=== PATIENT | female | born 1975 | race Caucasian/White ===

== ENCOUNTER 2017-09-10 20:59 | Emergency (ER) | payer BC ==
--- NOTE | 2017-09-10 21:24 | UC ---
Lower Extremity/Ankle HPI - HPI Summary HPI Summary: fell several days ago hitting left leg on bath tub---seen at urgent care in [place] rx with bruise--then rode in a car home---now has worsening swelling and calf pain - History of Current Complaint Chief Complaint: UCLowerExtremity Stated Complaint: LEG PAIN INJURY Time Seen by Provider: 09/10/17 21:14 Hx Obtained From: Patient ?: No Onset/Duration: Sudden Onset, Lasting Days, Worse Since - past 24 hours Severity Initially: Mild Severity Currently: Moderate Aggravating Factor(s): Standing, Ambulation Alleviating Factor(s): Nothing Able to Bear Weight: Yes - with pain - Allergies/Home Medications Allergies/Adverse Reactions: Allergies Allergy/AdvReac Type Severity Reaction Status Date / Time No Known Allergies Allergy Verified 09/10/17 21:32 Home Medications: Home Medications HYDROcodone/ACETAMIN 5-325 MG* [Rives 5-325 TAB*] 1 tab PO Q6HR PRN 09/10/17 [ History Confirmed 09/10/17] Ibuprofen TAB* [Motrin TAB* 800 MG] 800 mg PO Q8HR 09/10/17 [History Confirmed 09/10/17] PMH/Surg Hx/FS Hx/Imm Hx Previously Healthy: Yes - Surgical History Surgical History: Yes Surgery Procedure, Year, and Place: TUBAL LIGATION - Family History Known Family History: Positive: None - Social History Occupation: Employed Full-time Lives: With Family Alcohol Use: None Substance Use Type: None Review of Systems Constitutional: Negative Skin: Negative Eyes: Negative ENT: Negative Respiratory: Negative Cardiovascular: Negative Gastrointestinal: Negative Genitourinary: Negative Motor: Negative Neurovascular: Negative Musculoskeletal: Edema - left lower leg, Myalgia - left calf pain Neurological: Negative Psychological: Negative Is Patient Immunocompromised?: No All Other Systems Reviewed And Are Negative: Yes Physical Exam Triage Information Reviewed: Yes Appearance: Well-Appearing, Well-Nourished, Pain Distress Vital Signs Reviewed: Yes Eye Exam: Normal Eyes: Positive: Conjunctiva Clear ENT Exam: Normal ENT: Positive: Normal ENT inspection, Hearing grossly normal. Negative: Trismus , Muffled voice, Hoarse voice Dental Exam: Normal Neck exam: Normal Neck: Positive: Supple, Nontender, No Lymphadenopathy Respiratory Exam: Normal Respiratory: Positive: Chest non-tender, No respiratory distress, No accessory muscle use Cardiovascular Exam: Normal Cardiovascular: Positive: RRR, Pulses Normal, Brisk Capillary Refill Musculoskeletal Exam: Other Musculoskeletal: Positive: Strength Limited @ - lef lower leg, ROM Limited @ - left ankle, Edema @ - left lower leg Neurological Exam: Normal Neurological: Positive: Alert, Muscle Tone Normal Psychological Exam: Normal Skin Exam: Normal Lower Extremity Course/Dx - Course Course Of Treatment: d/c patient from urgent care to go to [facility] for for evaluation of swollen tender calf - Differential Dx/Diagnosis Provider Diagnoses: lower lower leg pain and swelling Discharge - Sign-Out/Discharge Documenting (check all that apply): Discharge/Admit/Transfer - Discharge Plan Condition: Stable Disposition: HOME Discharge Disposition Comment: to [facility] ed by private car Patient Education Materials: Deep Vein Thrombosis (ED), Leg Edema (ED), Deep Vein Thrombosis Prevention (ED) Referrals: Yola Moreno MD [Primary Care Provider] - Additional Instructions: I am discharging you to go directly to the emergency department for evaluation of pain and swelling in left lower leg - Billing Disposition and Condition Condition: STABLE Disposition: Home
[2017-09-10 21:32] VITALS: BP 144/89
== END 2017-09-10 21:35 | disposition home or self-care (01) ==
LOC: UCEAST 20:59
DX: M79.662 Pain in left lower leg (principal); M79.89 Other specified soft tissue disorders
CPT/HCPCS: 99212; G0463

== ENCOUNTER 2017-09-10 21:52 | Emergency (ER) | payer BC ==
--- NOTE | 2017-09-11 00:01 | ED ---
Lower Extremity - HPI Summary HPI Summary: 42-year-old female presents with increasing left calf swelling today. States she hit her leg a week ago on the side of her left lower calf and has been having pain since. She was seen in [place] and had negative x-rays. She states that she drove back 5 days ago and everything seemed okay. She states she spent next 4 days with her leg elevated. She went back to work today and has not been able to keep her leg elevated. She states she has been having increasing edema for the past day. She denies any fevers. She denies any chest pain or shortness of breath. No numbness or tingling. No weakness. She is pain is worse when she tries to ambulate. She states it feels very stiff. She has been taking Tylenol ibuprofen and icing without relief. She is nonsmoker. No family history of blood clots. - History of Current Complaint Chief Complaint: EDExtremityLower Stated Complaint: POSSIBLE BLOOD CLOT IN LT LEG Time Seen by Provider: 09/10/17 22:35 Pain Intensity: 7 - Allergies/Home Medications Allergies/Adverse Reactions: Allergies Allergy/AdvReac Type Severity Reaction Status Date / Time No Known Allergies Allergy Verified 09/10/17 21:32 Home Medications: Home Medications Escitalopram (NF) [Lexapro 10 mg (NF)] 10 mg PO DAILY 09/10/17 [History Confirmed 09/10/17] PMH/Surg Hx/FS Hx/Imm Hx Endocrine/Hematology History: Denies: Hx Diabetes Cardiovascular History: Denies: Hx Hypertension, Hx Pacemaker/ICD History: Denies: Hx Renal Disease Sensory History: Denies: Hx Hearing Aid Psychiatric History: Denies: Hx Panic Disorder - Surgical History Surgery Procedure, Year, and Place: TUBAL LIGATION Infectious Disease History: No Infectious Disease History: Denies: Traveled Outside the [place] in Last 30 Days - Family History Known Family History: Negative: Blood Disorder - Social History Alcohol Use: Occasionally Substance Use Type: Reports: None Smoking Status (MU): Never Smoked Tobacco Review of Systems Negative: Fever Negative: Chest Pain Negative: Shortness Of Breath Positive: Myalgia - left calf, Edema - left calf All Other Systems Reviewed And Are Negative: Yes Physical Exam Triage Information Reviewed: Yes Vital Signs On Initial Exam: Initial Vitals Temp Pulse Resp BP Pulse Ox 98.9 F 85 20 147/86 96 09/10/17 22:00 09/10/17 22:00 09/10/17 22:00 09/10/17 22:00 09/10/17 22:00 Vital Signs Reviewed: Yes Appearance: Positive: Well-Appearing Skin: Positive: Warm, Dry, Other - Ecchymosis noted to left foot and calf Head/Face: Positive: Normal Head/Face Inspection Eyes: Positive: Normal, Conjunctiva Inflammed ENT: Positive: Pharynx normal Respiratory/Lung Sounds: Positive: Clear to Auscultation, Breath Sounds Present Cardiovascular: Positive: Normal, RRR Musculoskeletal: Positive: Limited @ - Left calf, Edema Left - Left calf and foot, Other - Contusion noted to the area were pain is greatest in left calf ( this is also the area she struck in the accident), good pulses, cap relief less than 2 seconds Neurological: Positive: Normal Psychiatric: Positive: Normal Diagnostics - Vital Signs Vital Signs Temp Pulse Resp BP Pulse Ox 09/10/17 22:00 98.9 F 85 20 147/86 96 - Laboratory Lab Statement: Any lab studies that have been ordered have been reviewed, and results considered in the medical decision making process. - Ultrasound No standard instances Ultrasound Interpretation: Positive (See Comments) - No DVT. Edema noted in superficial Soft tissue Ultrasound Interpretation Completed By: Radiologist Lower Extremity Course/Dx - Course Course Of Treatment: 42-year-old female presents with increasing left calf swelling today. States she hit her leg a week ago on the side of her left lower calf and has been having pain since. She was seen in [place] and had negative x-rays. She states that she drove back 5 days ago and everything seemed okay. She states she spent next 4 days with her leg elevated. She went back to work today and has not been able to keep her leg elevated. She states she has been having increasing edema for the past day. She denies any fevers. She denies any chest pain or shortness of breath. No numbness or tingling. No weakness. She is pain is worse when she tries to ambulate. She states it feels very stiff. She has been taking Tylenol ibuprofen and icing without relief. She is nonsmoker. No family history of blood clots. On exam has is ecchymosis and edema noted to her left foot and ankle. Neurovascular intact. Has contusion noted of where her pain is greatest. Positive Homans sign. Ultrasound shows No DVT. Edema noted in superficial Soft tissue. do not suspect compartment syndrome as skin is not wood feeling, neurovascular intact, and has full ROM lower extremity. Will treat with rice as likely has a hematoma. Told elevated the foot as much as possible. patient is requesting knee scooter. Patient understands and agrees the plan. - Diagnoses Differential Diagnosis/HQI/PQRI: Positive: Contusion, DVT, Fracture (Closed) Provider Diagnoses: Pain of left calf, Contusion Discharge - Sign-Out/Discharge Documenting (check all that apply): Discharge/Admit/Transfer - Discharge Plan Condition: Good Disposition: HOME Patient Education Materials: Contusion in Adults (ED) Referrals: Yola Moreno MD [Primary Care Provider] - Additional Instructions: Take Tylenol or ibuprofen every 6 hours as needed for pain Apply ice, rest, elevate use compression socks Follow up with primary care physician within 5 days Return to ED if develop any numbness, tingling, or any new or worsening symptoms - Billing Disposition and Condition Condition: GOOD Disposition: Home
[2017-09-11 00:50] VITALS: BP 136/71
--- NOTE | 2017-09-11 07:09 | RAD ---
INDICATION: Left leg swelling. COMPARISON: There are no prior studies available for comparison. TECHNIQUE: Multiple real-time, color flow and Doppler tracings of the left lower extremity were obtained. FINDINGS: The common femoral, femoral, profunda femoral and popliteal veins all demonstrate normal compressibility, augmentation with compression and phasic response with respiration. The posterior tibial and peroneal veins appear patent. There is limited visualization of the peroneal veins due to swelling. IMPRESSION: LIMITED EXAM OF THE CALF, NO EVIDENCE FOR DEEP VENOUS THROMBOSIS.
== END 2017-09-11 00:47 | disposition home or self-care (01) ==
LOC: ED 21:52
DX: M79.662 Pain in left lower leg (principal); S80.12XA Contusion of left lower leg, initial encounter; W22.8XXA Striking against or struck by other objects, initial encounter; Y92.9 Unspecified place or not applicable; R60.0 Localized edema
CPT/HCPCS: 99282

== ENCOUNTER 2018-11-26 17:05 | Emergency (ER) | payer BC ==
[2018-11-26 17:40] VITALS: BP 131/85
[2018-11-26 18:01] LABS: Influenza A Molecular NEGATIVE (Negative); Influenza B Molecular NEGATIVE (Negative)
--- NOTE | 2018-11-26 18:01 | UC ---
FLU HPI - HPI Summary HPI Summary: 1 day sore throat, nasal, pain, frontal headache, body ache, fever last night, no cough - History of Current Complaint Chief Complaint: UCRespiratory Stated Complaint: FLU SYMPTOMS Time Seen by Provider: 11/26/18 17:38 Hx Obtained From: Patient Hx Last Menstrual Period: 11/19/18 ?: No Onset/Duration: Sudden Onset, Lasting Days - 1, Still Present Pain Intensity: 4 Pain Scale Used: 0-10 Numeric Associated Signs & Symptoms: Positive: Fever, Myalgia, Sore Throat, Headache - Allergy/Home Medications Allergies/Adverse Reactions: Allergies Allergy/AdvReac Type Severity Reaction Status Date / Time No Known Allergies Allergy Verified 11/26/18 17:40 PMH/Surg Hx/FS Hx/Imm Hx Previously Healthy: Yes - Surgical History Surgical History: Yes Surgery Procedure, Year, and Place: TUBAL LIGATION - Family History Known Family History: Positive: None Negative: Blood Disorder - Social History Occupation: Employed Full-time Lives: With Family Alcohol Use: Occasionally Substance Use Type: None Smoking Status (MU): Never Smoked Tobacco Review of Systems All Other Systems Reviewed And Are Negative: Yes Constitutional: Positive: Fever, Chills, Fatigue Skin: Positive: Negative Eyes: Positive: Negative ENT: Positive: Sore Throat, Nasal Discharge, Sinus Congestion Respiratory: Positive: Cough Cardiovascular: Positive: Negative Gastrointestinal: Positive: Negative Genitourinary: Positive: Negative Motor: Positive: Negative Neurovascular: Positive: Negative Musculoskeletal: Positive: Arthralgia, Myalgia Neurological: Positive: Negative Psychological: Positive: Negative Is Patient Immunocompromised?: No Physical Exam Triage Information Reviewed: Yes Appearance: Ill-Appearing, Pain Distress Vital Signs: Initial Vital Signs Temp 97.5 F 11/26/18 17:37 Pulse 102 11/26/18 17:37 Resp 18 11/26/18 17:37 BP 131/85 11/26/18 17:37 Pulse Ox 99 11/26/18 17:37 Vital Signs Reviewed: Yes Eye Exam: Normal Eyes: Positive: Conjunctiva Clear ENT Exam: Normal ENT: Positive: Normal ENT inspection, Hearing grossly normal, Pharyngeal erythema, TMs normal, Uvula midline. Negative: Nasal congestion, Tonsillar swelling, Muffled voice, Hoarse voice, Dental tenderness, Sinus tenderness Dental Exam: Normal Neck: Positive: Supple, Nontender, Enlarged Nodes @ - anterior cervical Respiratory Exam: Normal Respiratory: Positive: Chest non-tender, Lungs clear, Normal breath sounds, No respiratory distress, No accessory muscle use Cardiovascular Exam: Normal Cardiovascular: Positive: RRR, No Murmur, Pulses Normal, Brisk Capillary Refill Musculoskeletal Exam: Normal Musculoskeletal: Positive: Strength Intact, ROM Intact, No Edema Neurological Exam: Normal Neurological: Positive: Alert, Muscle Tone Normal Psychological Exam: Normal Skin Exam: Normal Diagnostics - Laboratory Lab Results: Influenza A/B (-) RST (-) Flu Course/Dx - Course Course Of Treatment: amoxicillin, tylenol, ibuprofen, rest increase fluids follow with pcp - Differential Dx/Diagnosis Provider Diagnosis: Sinusitis Discharge ED - Sign-Out/Discharge Documenting (check all that apply): Patient Departure All imaging exams completed and their final reports reviewed: No Studies - Discharge Plan Condition: Stable Disposition: HOME Prescriptions: Amoxicillin PO (*) [Amoxicillin 875 MG (*)] 875 mg PO BID #19 tab Fluconazole 150 MG TAB* [Diflucan 150 MG TAB*] 150 mg PO ONCE #2 tablet Patient Education Materials: Pharyngitis (ED), Fever in Adults (ED) Referrals: Yola Moreno MD [Primary Care Provider] - If Needed - Billing Disposition and Condition Condition: STABLE Disposition: Home
[2018-11-26] MEDS ORDERED: Amoxicillin PO (*) 500 MG CAP PO ONE (18:07)
== END 2018-11-26 18:30 | disposition home or self-care (01) ==
LOC: UCEAST 17:05
DX: J02.9 Acute pharyngitis, unspecified (principal); J32.9 Chronic sinusitis, unspecified
CPT/HCPCS: 87651; 99212; A9270-GY; G0463